=== PATIENT | female | born 1995 | race Caucasian/White ===

== ENCOUNTER 2018-05-18 10:02 | Day surgery (SDC) | payer MEDICAID ==
--- NOTE | 2018-05-18 10:36 | PCM.PREANE ---
Preanesthetic Assessment - Anesthesia/Transfusion/Family Hx Anesthesia History: Prior Anesthesia Without Reaction Family History of Anesthesia Reaction: No Transfusion History: No Prior Transfusion(s) Intubation History: Unknown - Review of Systems General: No Symptoms Pulmonary: No Symptoms Cardiovascular: No Symptoms Gastrointestinal: No Symptoms Neurological: No Symptoms Other: Reports: None - Physical Assessment O2 Sat by Pulse Oximetry: 99 Respiratory Rate: 16 Vital Signs: Last Vital Signs Temp 36.6 C 05/18/18 10:20 Pulse 102 H 05/18/18 10:20 Resp 16 05/18/18 10:20 BP 141/84 H 05/18/18 10:20 Pulse Ox 99 05/18/18 10:20 Height: 1.68 m Weight: 69.4 kg ASA Class: 1 Mental Status: Alert & Oriented x3 Airway Class: Mallampati = 1 Dentition: Reports: Normal Dentition Thyro-Mental Finger Breadths: 2 Mouth Opening Finger Breadths: 3 ROM/Head Extension: Full Lungs: Clear to Auscultation, Normal Respiratory Effort Cardiovascular: Regular Rate, Regular Rhythm - Allergies Allergies/Adverse Reactions: Allergies Allergy/AdvReac Type Severity Reaction Status Date / Time No Known Allergies Allergy Verified 05/16/18 14:10 - Blood Blood Available: No - Anesthesia Plan Pre-Op Medication Ordered: None - Acknowledgements Anesthesia Type Planned: General Anesthesia Pt an Appropriate Candidate for the Planned Anesthesia: Yes Alternatives and Risks of Anesthesia Discussed w Pt/Guardian: Yes Pt/Guardian Understands and Agrees with Anesthesia Plan: Yes PreAnesthesia Questionnaire HEENT History: Reports: None Cardiovascular History: Reports: Other (See Below) Other Cardiovascular History: murmur as infant Other Gastrointestinal History: heartburn during - Past Surgical History Head Surgeries/Procedures: Reports: None HEENT Surgical History: Reports: Adenoidectomy, Tonsillectomy - SUBSTANCE USE Smoking Status *Q: Never Smoker Recreational Drug Use History: No - HOME MEDS Home Medications: Home Meds PNV95/Ferrous Fumarate/FA [ Vitamin Tablet] 1 tab PO DAILY 05/16/18 [ History]
[2018-05-18] MEDS ORDERED: Sodium Chloride 0.9% 2.5 ML Syringe FLUSH PRN (10:49)
[2018-05-18] MEDS ORDERED: Sodium Chloride 0.9% 10 ML Syringe FLUSH PRN (10:49)
[2018-05-18] MEDS ORDERED: Ondansetron 4 MG/2 ML SDV ONE (10:52)
[2018-05-18] MEDS ORDERED: Midazolam 1 MG/ML 2 ML SDV ONE (10:52)
[2018-05-18] MEDS ORDERED: Propofol 200 MG/20 ML SDV ONE (10:52)
[2018-05-18] MEDS ORDERED: fentaNYL 100 MCG/2 ML SDV ONE ×2 (10:52→11:57)
[2018-05-18] MEDS ORDERED: Methylergonovine 0.2 MG/1 ML Amp ONE (11:36)
[2018-05-18] MEDS ORDERED: Carboprost Tromethamine 250 MCG/1 ML Amp ONE (11:36)
[2018-05-18] MEDS ORDERED: Ferric Subsulfate Topical Soln 8 GM (8 ML) Bottle ONE (12:10)
--- NOTE | 2018-05-18 12:23 | PCM.OPNOTE ---
- General Post-Op/Procedure Note Date of Surgery/Procedure: 05/18/18 Operative Procedure(s): Suction D&C Findings: 9 week demise Pre Op Diagnosis: Missed Post-Op Diagnosis: Completed Anesthesia Technique: General LMA Primary Surgeon: Carlene Juinor Fluid Replacement, Intraop: 900 EBL in mLs: 100 Complications: none known Condition: Stable Free Text/Narrative:: Dictation [id number]
--- NOTE | 2018-05-18 14:26 | PCM48HPAN ---
Post Anesthesia Note - EVALUATION WITHIN 48HRS OF ANESTHETIC Vital Signs in Normal Range: Yes Patient Participated in Evaluation: Yes Respiratory Function Stable: Yes Airway Patent: Yes Cardiovascular Function Stable: Yes Hydration Status Stable: Yes Pain Control Satisfactory: Yes Nausea and Vomiting Control Satisfactory: Yes Mental Status Recovered: Yes Resp Rate: 16 - COMMENTS/OBSERVATIONS Free Text/Narrative:: Patient stable and recovered from anesthesia. No anesthesia complications present.
--- NOTE | 2018-05-18 14:41 | OR ---
SURGEON: Carlene Junior M.D. DATE OF PROCEDURE: 05/18/2018 PREOPERATIVE DIAGNOSIS: Missed . POSTOPERATIVE DIAGNOSIS: Completed . ANESTHESIA: General LMA. ESTIMATED BLOOD LOSS: 400 mL. FLUIDS: 900 mL of crystalloid. COMPLICATIONS: None known. FINDINGS: 9-week demise. DISPOSITION: The patient to PACU, stable. SPECIMEN: Products of conception to pathology. INDICATION: Kyara is a 22-year-old G1, P0, approximately 9 weeks' gestational age who presented for an OB visit and with ultrasound, was found to have a 9-week demise. This was confirmed with followup ultrasound per patient's request. She has not had any bleeding and minimal cramping at this juncture. After discussing options with her, she would like to proceed with surgical intervention from a suction D and C. Risks of procedure have been discussed. Proper consent obtained. PROCEDURE IN DETAIL: The patient was taken to the operating room where she underwent general LMA, was placed in modified dorsal lithotomy position, was prepped and draped in the usual sterile fashion. SCDs to lower extremities. Bladder was drained. Time- out was performed. Speculum was introduced into the vagina. Cervix was grasped with an Allis clamp followed by single-tooth tenaculum. Cervix was gently dilated to 3 mm and Uterine Sound was placed sounding to approximately 10 cm. The cervix was now gently dilated to 8 mm. At this juncture, was very difficult to dilate to the 9 and 10 mm point, so opted to use 8 mm curved curette to decrease risk for trauma. An 8 mm curved curette and suction device were now gently introduced into the uterine cavity to the fundus. With suction applied, the uterine cavity was cleared of all products of conception. Gentle sharp curettage was performed. suction curette was now performed with gentle sharp curettage. Myometrium was able to be palpated and it is felt that the uterus is adequately evacuated. Hemostasis appeared evident. Region of the single-tooth tenaculum placement was inspected and overall hemostatic, but Monsel was placed to ensure hemostasis. Sponge and instrument counts were correct x2. All instruments were removed from the vagina. Hemostasis evident. Specimen will go to pathology as products of conception. The patient to PACU in stable condition. ABEL / FEDERICA /[id number]
--- NOTE | 2018-05-18 16:23 | PCM.POSTAN ---
POST ANESTHESIA ASSESSMENT - MENTAL STATUS Mental Status: Alert, Oriented - RESPIRATORY Respiratory Status: Respiratory Rate WNL, Airway Patent, O2 Saturation Stable - CARDIOVASCULAR CV Status: Pulse Rate WNL, Blood Pressure Stable - GASTROINTESTINAL GI Status: No Symptoms - PAIN Pain Score: 2 - POST OP HYDRATION Hydration Status: Adequate & Stable - OBSERVATIONS Free Text/Narrative:: no anesthesia problems
== END 2018-05-18 14:33 | disposition home or self-care (01) ==
LOC: MW.SDS 10:02
PROVIDERS: ATTEND Obstetrics & Gynecology
DX: O02.1 Missed abortion (principal); Z79.899 Other long term (current) drug therapy
CPT/HCPCS: 36415; 59820; 85025; J2001; J2250; J2405; J2704; J3010; 88305; J2210

== ENCOUNTER 2020-08-27 11:40 | Day surgery (SDC) | payer MEDICAID ==
[~2020-08-27 11:40] MED LIST: Albuterol 0.083% 2.5 MG/3 ML Neb Soln NEB PRN; HYDROmorphone 2 MG/ML Syringe IVPUSH PRN; Metoclopramide 10 MG/2 ML SDV IVPUSH PRN; Naloxone 0.4 MG/ML Syringe IVPUSH PRN; Ondansetron 4 MG/2 ML SDV IVPUSH PRN; fentaNYL 100 MCG/2 ML SDV IVPUSH PRN
[2020-08-27] MEDS ORDERED: Midazolam 1 MG/ML 2 ML SDV ONE (11:44)
[2020-08-27] MEDS ORDERED: Propofol 200 MG/20 ML SDV ONE (11:44)
[2020-08-27] MEDS ORDERED: fentaNYL 100 MCG/2 ML SDV ONE ×2 (11:44→13:23)
[2020-08-27] MEDS ORDERED: Ondansetron 4 MG/2 ML SDV ONE (11:46)
[2020-08-27] MEDS ORDERED: Dexamethasone 4 MG/ML 5 ML MDV ONE (11:46)
[2020-08-27] MEDS ORDERED: Ketorolac 30 MG/ML SDV ONE (11:54)
[2020-08-27] MEDS ORDERED: Sodium Chloride 0.9% 10 ML Syringe FLUSH PRN (12:12)
[2020-08-27] MEDS ORDERED: Sodium Chloride 0.9% 2.5 ML Syringe FLUSH PRN (12:12)
[2020-08-27] MEDS ORDERED: Sodium Chloride 0.9% 10 ML SDV IV PRN (12:12)
[2020-08-27] MEDS ORDERED: Glycopyrrolate 0.2 MG/ML SDV ONE (13:07)
[2020-08-27] MEDS ORDERED: Lactated Ringers 1,000 ML IV SCH (13:30)
--- NOTE | 2020-08-27 15:46 | PCM.OPNOTE ---
- General Post-Op/Procedure Note Date of Surgery/Procedure: 08/27/20 Operative Procedure(s): Suction D&C Findings: PRoducts of conception Pre Op Diagnosis: Missed Post-Op Diagnosis: Completed Anesthesia Technique: General LMA Primary Surgeon: Carlene Junior Fluid Replacement, Intraop: 1,000 EBL in mLs: 350 Complications: none known Condition: Stable Free Text/Narrative:: Intake & Output 08/27/20 08/27/20 08/27/20 06:59 14:59 22:59 Intake Total 1100 Output Total 30 Balance -30 1100
--- NOTE | 2020-08-27 18:47 | OR ---
SURGEON: Carlene Junior M.D. DATE OF PROCEDURE: 08/27/2020 PREOPERATIVE DIAGNOSIS: Missed . POSTOPERATIVE DIAGNOSIS: Completed . PRIMARY SURGEON: Carlene Junior M.D. ANESTHESIA: General LMA. ESTIMATED BLOOD LOSS: 350 mL. FLUIDS: 1000 mL of crystalloid. COMPLICATIONS: None known. FINDINGS: Products of conception. DISPOSITION: The patient to PACU, stable. DESCRIPTION OF PROCEDURE: Kyara is a 24-year-old, -0-1-1 at approximately 10 weeks gestational age, who presented for her new OB visit this week. At the time of sonogram, she was found to have 10-week demise. Options have been discussed, where she wishes to proceed with surgical intervention from a suction D and C. Risks of procedure were discussed. Proper consent obtained. The patient was taken to the operating room, where she underwent general LMA, was placed in modified dorsal lithotomy position, was prepped and draped in usual sterile fashion. SCDs to lower extremities. Bladder was drained. A time- out was performed. A speculum was introduced into the vagina. Anterior lip of cervix was grasped with an Allis clamp. Cervix was gently dilated to 10 mm. Using a 10 mm suction curette, this was introduced to the fundus. Under suction, the uterine contents were evacuated. Products of conception will be sent to Pathology for further analysis. The patient did decline chromosomal analysis. Gentle sharp curettage was performed. The uterus was felt to be satisfactorily evacuated and it was involuting nicely. Hemostasis appeared evident. All instruments removed from the vagina. Sponge and instrument count was correct x2. The patient will go to PACU in stable condition. SPECIMENS: To pathology. ABEL / FEDERICA /[id number] MERCEDES
--- NOTE | 2020-08-28 07:42 | PCM.PREANE ---
Preanesthetic Assessment - Anesthesia/Transfusion/Family Hx Anesthesia History: Prior Anesthesia Without Reaction Transfusion History: No Prior Transfusion(s) Intubation History: Unknown - Review of Systems General: No Symptoms Pulmonary: No Symptoms Cardiovascular: No Symptoms Gastrointestinal: No Symptoms Neurological: No Symptoms Other: Reports: None - Physical Assessment Vital Signs: Last Vital Signs Temp 97.3 F 08/27/20 14:22 Pulse 93 08/27/20 15:15 Resp 15 08/27/20 15:15 BP 119/71 08/27/20 15:15 Pulse Ox 97 08/27/20 15:15 Height: 5 ft 6 in Weight: 150 lb Mental Status: Alert & Oriented x3 Dentition: Reports: Normal Dentition ROM/Head Extension: Full Lungs: Clear to Auscultation, Normal Respiratory Effort Cardiovascular: Regular Rate, Regular Rhythm - Lab Values: Laboratory Last Values SARS-CoV-2 RNA (AHRRY) NEGATIVE (NEGATIVE) 08/26/20 10:20 - Allergies Allergies/Adverse Reactions: Allergies Allergy/AdvReac Type Severity Reaction Status Date / Time No Known Allergies Allergy Verified 08/26/20 09:50 PreAnesthesia Questionnaire HEENT History: Reports: None Cardiovascular History: Reports: Other (See Below) Other Cardiovascular History: murmur as Respiratory History: Reports: None Gastrointestinal History: Reports: None Genitourinary History: Reports: None 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: , 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 Musculoskeletal History: Reports: None Neurological History: Reports: None Psychiatric History: Reports: None Endocrine/Metabolic History: Reports: None Hematologic History: Reports: None Immunologic History: Reports: None Oncologic (Cancer) History: Reports: None Dermatologic History: Reports: None - Past Surgical History Head Surgeries/Procedures: Reports: None HEENT Surgical History: Reports: Adenoidectomy, Tonsillectomy Cardiovascular Surgical History: Reports: None Respiratory Surgical History: Reports: None Female Surgical History: Reports: D&C Other Female Surgeries/Procedures: previous suction D&C Endocrine Surgical History: Reports: None Neurological Surgical History: Reports: None Musculoskeletal Surgical History: Reports: None Oncologic Surgical History: Reports: None Dermatological Surgical History: Reports: None - SUBSTANCE USE Tobacco Use Status *Q: Never Tobacco User - HOME MEDS Home Medications: Home Meds Pnv No.95/Ferrous Fum/Folic AC [ Vitamin Tablet] 1 tab PO DAILY 05/16/18 [History] - CURRENT (IN HOUSE) MEDS Current Meds: Current Medications Albuterol (Albuterol 0.083% 2.5 Mg/3 Ml Neb Soln) 2.5 mg NEB ONETIME PRN PRN Reason: Wheezing Droperidol (Droperidol 5 Mg/2 Ml Sdv) 0.625 mg IVPUSH ONETIME PRN PRN Reason: Nausea/Vomiting Fentanyl (Fentanyl 100 Mcg/2 Ml Sdv) 50 mcg IVPUSH Q5M PRN PRN Reason: Pain (mild 1-3) Hydromorphone HCl (Hydromorphone 2 Mg/Ml Syringe) 0.5 mg IVPUSH Q10M PRN PRN Reason: Pain (moderate 4-6) Lactated Ringer's (Ringers, Lactated) 1,000 mls @ 125 mls/hr IV ASDIRECTED YINA Metoclopramide HCl (Metoclopramide 10 Mg/2 Ml Sdv) 10 mg IVPUSH ONETIME PRN PRN Reason: Nausea/Vomiting Naloxone HCl (Naloxone 0.4 Mg/Ml Syringe) 0.1 mg IVPUSH ASDIRECTED PRN PRN Reason: Respiratory Depression Ondansetron HCl (Ondansetron 4 Mg/2 Ml Sdv) 4 mg IVPUSH ONETIME PRN PRN Reason: Nausea/Vomiting Sodium Chloride (Sodium Chloride 0.9% 10 Ml Syringe) 10 ml FLUSH ASDIRECTED PRN PRN Reason: Keep Vein Open Sodium Chloride (Sodium Chloride 0.9% 2.5 Ml Syringe) 2.5 ml FLUSH ASDIRECTED PRN PRN Reason: Keep Vein Open Sodium Chloride (Sodium Chloride 0.9% 10 Ml Sdv) 10 ml IV ASDIRECTED PRN PRN Reason: IV Use Discontinued Medications Dexamethasone (Dexamethasone 4 Mg/Ml 5 Ml Mdv) Confirm Administered Dose 20 mg .ROUTE .STK-MED ONE Stop: 08/27/20 11:47 Fentanyl (Fentanyl 100 Mcg/2 Ml Sdv) Confirm Administered Dose 100 mcg .ROUTE .STK-MED ONE Stop: 08/27/20 11:45 Glycopyrrolate (Glycopyrrolate 0.2 Mg/Ml Sdv) Confirm Administered Dose 0.2 mg .ROUTE .STK-MED ONE Stop: 08/27/20 13:08 Ketorolac Tromethamine (Ketorolac 30 Mg/Ml Sdv) Confirm Administered Dose 30 mg .ROUTE .STK-MED ONE Stop: 08/27/20 11:55 Lidocaine HCl (Lidocaine 1% 5 Ml Sdv) Confirm Administered Dose 5 ml .ROUTE .STK-MED ONE Stop: 08/27/20 11:47 Midazolam HCl (Midazolam 1 Mg/Ml 2 Ml Sdv) Confirm Administered Dose 2 mg .ROUTE .STK-MED ONE Stop: 08/27/20 11:45 Ondansetron HCl (Ondansetron 4 Mg/2 Ml Sdv) Confirm Administered Dose 4 mg .ROUTE .STK-MED ONE Stop: 08/27/20 11:47 Propofol (Propofol 200 Mg/20 Ml Sdv) Confirm Administered Dose 200 mg .ROUTE .STK-MED ONE Stop: 08/27/20 11:45
--- NOTE | 2020-08-28 07:43 | PCM48HPAN ---
Post Anesthesia Note - EVALUATION WITHIN 48HRS OF ANESTHETIC Vital Signs in Normal Range: Yes Patient Participated in Evaluation: Yes Respiratory Function Stable: Yes Airway Patent: Yes Cardiovascular Function Stable: Yes Hydration Status Stable: Yes Pain Control Satisfactory: Yes Nausea and Vomiting Control Satisfactory: Yes Mental Status Recovered: Yes Vital Signs: Last Vital Signs Temp 97.3 F 08/27/20 14:22 Pulse 93 08/27/20 15:15 Resp 15 08/27/20 15:15 BP 119/71 08/27/20 15:15 Pulse Ox 97 08/27/20 15:15
--- NOTE | 2020-08-28 07:43 | PCM.POSTAN ---
POST ANESTHESIA ASSESSMENT - MENTAL STATUS Mental Status: Alert, Oriented - VITAL SIGNS Vital Signs: Last Vital Signs Temp 97.3 F 08/27/20 14:22 Pulse 93 08/27/20 15:15 Resp 15 08/27/20 15:15 BP 119/71 08/27/20 15:15 Pulse Ox 97 08/27/20 15:15 - RESPIRATORY Respiratory Status: Respiratory Rate WNL, Airway Patent, O2 Saturation Stable - CARDIOVASCULAR CV Status: Pulse Rate WNL, Blood Pressure Stable - GASTROINTESTINAL GI Status: No Symptoms - POST OP HYDRATION Hydration Status: Adequate & Stable
== END 2020-08-27 15:25 | disposition home or self-care (01) ==
LOC: MW.SDS 11:40
PROVIDERS: ATTEND Obstetrics & Gynecology
DX: O02.1 Missed abortion (principal); Z01.812 Encounter for preprocedural laboratory examination; Z20.822 Contact with and (suspected) exposure to COVID-19
CPT/HCPCS: 59820; 87635; 88305; J1100; J1885; J2250; J2405; J2704; J3010; J3490; 01965; U0002